=== PATIENT | female | born 1970 | race Caucasian/White ===

== ENCOUNTER 2017-12-10 14:11 | Day surgery (SDC) | payer OTHER ==
[~2017-12-10] VITALS: Ht 165.1 cm; Wt 136.6 kg
[~2017-12-10 14:11] MED LIST: ACIPHEX; ACIPHEX20 MG PO; BUSPAR; BUSPAR30 MG PO; CLONAZEPAM0.5 MG PO; DOXEPIN HCL25 MG PO; FLUOXETINE HCL10 MG PO; GABAPENTIN300 MG PO; GABAPENTIN600 MG PO; LEXAPRO; LISINOPRIL10 MG PO; LITHIUM CARBON300 MG PO; OXYBUTYNIN CHLOR5 M1 PO; PROAIR HFA8.5 GM IH; REXULTI1 MG PO
[2017-12-10 14:29] VITALS: BP 111/56
[2017-12-10 20:25] VITALS: BP 123/69
[2017-12-10 21:15] VITALS: BP 128/61
== END 2017-12-10 21:30 | disposition home or self-care (01) ==
LOC: SDC 14:11
DX: M48.061 Spinal stenosis, lumbar region without neurogenic claudication (principal); M51.16 Intervertebral disc disorders with radiculopathy, lumbar region; Z98.1 Arthrodesis status; E66.01 Morbid (severe) obesity due to excess calories; Z68.42 Body mass index [BMI] 45.0-49.9, adult; G89.29 Other chronic pain; Z88.2 Allergy status to sulfonamides; Z91.09 Other allergy status, other than to drugs and biological substances; Z91.040 Latex allergy status
CPT/HCPCS: 72020; 76000; J0131; J0330; J0690; J1100; J1170; J1885; J2250; J2405; J2710; J2765; J2930; J3010; J3370; Q0175; S0020